=== PATIENT | female | born 1970 | race Two or more races ===

== ENCOUNTER 2018-03-27 07:31 | Emergency (ER) | payer OTHER, BC ==
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
--- NOTE | 2018-03-27 08:33 | CT ---
CT cervical spine Technique: Multiple axial sections were obtained from above C1 inferiorly to the bottom of T2. Reconstructed sagittal and coronal images were reviewed. Comparison: Prior MRI cervical spine exam of 03/31/17. Findings: C1-2: Degenerative change is noted between the dens anterior arch of C1. C2-3: No central canal stenosis or neural foraminal stenosis is seen. C3-4: Severe disc space narrowing is seen. Moderate to severe left-sided neural foraminal stenosis is seen. Mild right sided neural foraminal stenosis is seen. Posterior osteophytes are seen. No central canal stenosis is noted. C4-5: Severe disc space narrowing is seen. Posterior spurring is seen asymmetrically worse to the left of midline. Moderate to severe left-sided neural foraminal stenosis is noted. Mild to moderate right-sided neural foraminal stenosis is seen. Mild central canal stenosis is noted. C5-6: Severe disc space narrowing is seen. Posterior osteophytes are seen. Moderate right sided neural foraminal stenosis is seen. Left neural foramina is fairly well patent. Mild central canal stenosis is seen. C6-7: Moderate disc space narrowing is seen. Mild right-sided neural foraminal stenosis is noted. Left neural foramina appears fairly well patent. No central canal stenosis is seen. C7-T1: Posterior disc is preserved. No central canal stenosis or neural foraminal stenosis is seen. T1-2: Posterior disc is preserved. No central canal stenosis or neural foraminal stenosis is seen. T2-3: Posterior disc is preserved. No central canal stenosis or neural foraminal stenosis is seen. No fracture is seen. No abnormal subluxation is identified. Slight loss of normal cervical curvature is seen due to degenerative change. Diffuse degenerative spurring within the uncovertebral joints noted at C3-4 through C5-6. Impression: 1. Diffuse degenerative change. 2. No acute fracture or acute subluxation is seen. Diagnostic code #3
[2018-03-27] MEDS ORDERED: Acetaminophen/HYDROcodone 325-5 MG Tab PO ONE (08:51)
--- NOTE | 2018-03-28 17:00 | CR ---
Lumbar spine: AP, lateral and cone-down lateral views centered to the lumbosacral junction were obtained. Comparison: No prior lumbar spine imaging. Mild posterior disc space narrowing is noted at L3-L4, L4-L5 and L5-S1. Disc spaces otherwise are preserved. Minimal endplate osteophytes are seen primarily at L4. No subluxation or fracture is seen. Impression: 1. Mild degenerative change. Nothing acute is appreciated on three-view lumbar spine exam. Diagnostic code #2
== END 2018-03-27 09:11 | disposition home or self-care (01) ==
LOC: JD.ED 07:31
DX: S16.1XXA Strain of muscle, fascia and tendon at neck level, initial encounter (principal); S39.012A Strain of muscle, fascia and tendon of lower back, initial encounter; V89.2XXA Person injured in unspecified motor-vehicle accident, traffic, initial encounter
CPT/HCPCS: 72100; 72125; 99285; A9270; 99283

== ENCOUNTER 2021-02-05 08:10 | Day surgery (SDC) | payer BC ==
[~2021-02-05 08:10] MED LIST: Lactated Ringers 1,000 ML IV SCH; Lidocaine 1%/Sod Bicarbonate in NS 8.4% 1 ML Syringe IDERM PRN; Sodium Chloride 0.9% 10 ML Syringe FLUSH PRN
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
[2021-02-05] MEDS ORDERED: Midazolam 1 MG/ML 2 ML SDV ONE (09:02)
[2021-02-05] MEDS ORDERED: Propofol 200 MG/20 ML SDV ONE (09:02)
--- NOTE | 2021-02-05 09:56 | PCM.PRNOTE ---
- Free Text/Narrative Note: Date: 02/05/2021 Procedure: screening colonoscopy History: initial screening, average risk Endoscopist: Sridhar Smith MD Findings: excellent prep. Cecum reached. No polyps or other pathology identified. Detailed Report: The patient was taken to the endoscopy suite and placed in left lateral decubitu s position. Timeout was performed and monitored anesthesia care was initiated. The anus appeared normal and digital rectal exam was unremarkable. The colonoscope was inserted and advanced to the cecum with ease. The prep was excellent. The appendiceal orifice was visualized. The scope was slowly withdrawn and mucosal surfaces carefully inspected. No polyps were identified. There was no diverticular disease. On retroflexion in the rectum, no significant hemorrhoidal disease was appreciated. Air was suctioned from the distal colon and rectum prior to withdrawal of the scope. The patient tolerated the procedure well.
--- NOTE | 2021-02-05 09:59 | PCM48HPAN ---
Post Anesthesia Note - EVALUATION WITHIN 48HRS OF ANESTHETIC Vital Signs in Normal Range: Yes Patient Participated in Evaluation: Yes Respiratory Function Stable: Yes Airway Patent: Yes Cardiovascular Function Stable: Yes Hydration Status Stable: Yes Pain Control Satisfactory: Yes Nausea and Vomiting Control Satisfactory: Yes Mental Status Recovered: Yes
--- NOTE | 2021-02-05 10:24 | PCM.SN.2 ---
#1 Interpretation EKG Date: 02/05/21 Time: 08:45 Rhythm: NSR Rate (Beats/Min): 78 [place]: Normal P-Wave: Present QRS: Normal ST-T: Normal QT: Normal
== END 2021-02-05 10:28 | disposition home or self-care (01) ==
LOC: JD.SDS 08:10
PROVIDERS: ATTEND Surgery
DX: Z12.11 Encounter for screening for malignant neoplasm of colon (principal); F41.9 Anxiety disorder, unspecified; F32.9 Major depressive disorder, single episode, unspecified; G89.29 Other chronic pain; E66.9 Obesity, unspecified; F43.10 Post-traumatic stress disorder, unspecified; F17.210 Nicotine dependence, cigarettes, uncomplicated; Z68.31 Body mass index [BMI] 31.0-31.9, adult; Z79.899 Other long term (current) drug therapy; Z98.890 Other specified postprocedural states
CPT/HCPCS: 45378; J2250; J2704; J7120; 00812